=== PATIENT | male | born 1980 | race Caucasian/White ===

== ENCOUNTER → 2019-05-20 | Outpatient (CLI) | payer OTHER ==
[~2019-05-20] MED LIST: ALBU90OI INH; AMOX500 PO; Augmentin 875-1 EACH PO; ESCI10 PO; HYDACE5 PO; META800 PO; METCAR500 PO; NAPR500 PO; PANT20 PO; PRED20 PO; SLEEPING PILL; Zithromax250 MG PO
== END | disposition home or self-care (01) ==
LOC: PLD 07:39 → LAB SHORT 07:39
DX: D22.5 Melanocytic nevi of trunk (principal)
CPT/HCPCS: 88305

== ENCOUNTER → 2020-12-14 | Outpatient (CLI) | payer OTHER | LOC: LAB 12:01 → LAB SHORT 12:01 | DX: D48.5 Neoplasm of uncertain behavior of skin (principal); D22.5 Melanocytic nevi of trunk | CPT/HCPCS: 88305; 88342 ==

== ENCOUNTER 2021-07-10 07:47 | Emergency (ER) | payer OTHER ==
[~2021-07-10] VITALS: Ht 162.6 cm; Wt 131.5 kg
[2021-07-10] MEDS ORDERED: AMOCLA875 PO (08:24)
== END 2021-07-10 08:58 | disposition home or self-care (01) ==
LOC: ER 07:47
DX: S61.451A Open bite of right hand, initial encounter (principal); Z23 Encounter for immunization; E78.5 Hyperlipidemia, unspecified; G47.30 Sleep apnea, unspecified; Z88.8 Allergy status to other drugs, medicaments and biological substances; Z79.899 Other long term (current) drug therapy; F17.220 Nicotine dependence, chewing tobacco, uncomplicated; W55.01XA Bitten by cat, initial encounter
CPT/HCPCS: 90471; 90714; 99283-25

== ENCOUNTER 2021-07-28 09:56 | Emergency (ER) | payer OTHER ==
[~2021-07-28] VITALS: Ht 165.1 cm; Wt 129.5 kg
[~2021-07-28 09:56] MED LIST changes: +AMOCLA875 PO
[2021-07-28] MEDS ORDERED: Cyclobenzaprine5 MG (10:28)
[2021-07-28 10:44] LABS: Source, Urine Voided
[2021-07-28 10:56] LABS: BASOPHILS ABSOLUTE AUTO 0.04 K/mm3 (0.00-0.23); BASOPHILS PERCENT AUTO 0 % (0-2); EOSINOPHILS ABSOLUTE AUTO 0.02 K/mm3 (0.00-0.68); EOSINOPHILS PERCENT AUTO 0 % (0-6); Hematocrit 45.4 % (37.0-53.0); Hemoglobin 15.5 g/dL (13.5-17.5); IMMATURE GRAN ABSOLUTE AUTO 0.09 K/mm3 (0.00-0.10); IMMATURE GRAN PERCENT AUTO 1 % (0-1); LYMPHOCYTES ABSOLUTE AUTO 1.07 K/mm3 (0.84-5.20); LYMPHOCYTES PERCENT AUTO 6 % (21-46); MONOCYTES ABSOLUTE AUTO 1.24 K/mm3 (0.16-1.47); MONOCYTES PERCENT AUTO 7 % (4-13); Mean Corpuscular HGB 30.3 pg (26.0-34.0); Mean Corpuscular HGB Conc 34.1 g/dL (31.5-36.5); Mean Corpuscular Volume 89 fL (80-100); Mean Platelet Volume 8.7 fL (9.1-12.4); NEUTROPHILS PERCENT AUTO 86 % (41-73); Platelet Count 238 K/mm3 (150-400); RDW Coefficient Variation 12.7 % (11.7-14.2); RDW Standard Deviation 41.5 fL (35.1-46.3); Red Blood Cell Count 5.12 M/mm3 (4.30-5.90); White Blood Cell Count 17.26 K/mm3 (4.00-11.30)
[2021-07-28 11:01] LABS: Appearance, Urine Clear (Clear); Bilirubin, Urine Neg (Neg); Blood, Urine 2+ (Neg); Color, Urine Yellow (P-Yellow); Glucose Qualitative, Urine Neg (Neg); Ketones, Urine 1+ (Neg); Leukocyte Esterase, Urine Neg (Neg); Nitrite, Urine Neg (Neg); Protein, Urine 2+ (Neg); Specific Gravity, Urine 1.015 (1.003-1.022); Urobilinogen, Urine 2+ (Normal)
[2021-07-28 11:07] LABS: Anion Gap 5 mmol/L (6-16); Blood Urea Nitrogen 11 mg/dL (8-24); Bun/Creatinine Ratio 14.3 (12.0-20.0); CO2, Blood 24 mmol/L (21-32); Calcium, Blood 8.8 mg/dL (8.5-10.1); Chloride, Blood 110 mmol/L (98-108); Creatinine, Blood 0.77 mg/dL (0.60-1.20); Glomerular Filtration Rate >60 (60-); Glucose, Blood 99 mg/dL (70-99); Potassium, Blood 3.5 mmol/L (3.5-5.5); Sodium, Blood 139 mmol/L (136-145)
[2021-07-28 11:26] LABS: Bacteria Rare /hpf; Squamous Epithelial Cells Rare /hpf (Few); White Blood Cells, Urine 0-2 /hpf (0-5)
[2021-07-28] MEDS ORDERED: IBUP800 PO (16:16)
[2021-07-28] MEDS ORDERED: CEPH500 PO (16:16)
== END 2021-07-28 16:35 | disposition home or self-care (01) ==
LOC: ER 09:56
PROVIDERS: Emergency Medicine
DX: N49.2 Inflammatory disorders of scrotum (principal); F17.220 Nicotine dependence, chewing tobacco, uncomplicated; Z79.899 Other long term (current) drug therapy; Z88.8 Allergy status to other drugs, medicaments and biological substances
CPT/HCPCS: 36415; 55100; 72193; 76870; 80048; 81001; 85025; 96374-59; 99284-25; J0696; Q9967

== ENCOUNTER 2023-07-29 21:08 | Emergency (ER) | payer OTHER ==
[~2023-07-29] VITALS: Ht 165.1 cm; Wt 117.9 kg
[~2023-07-29 21:08] MED LIST changes: +CEPH500 PO; +Cyclobenzaprine5 MG; +IBUP800 PO
[2023-07-29 21:26] VITALS: BP 133/82
[2023-07-29] MEDS ORDERED: Tetanus and Diphtheria Toxoid 0.5 ML INJ IM ONE (22:05)
[2023-07-29] MEDS ORDERED: Amoxicillin/Clavulanate K 875 MG Tab PO ONE (22:05)
[2023-07-29] MEDS ORDERED: AMOCLA875 PO (22:05)
== END 2023-07-29 22:12 | disposition home or self-care (01) ==
LOC: ER 21:08
DX: S61.452A Open bite of left hand, initial encounter (principal); F17.220 Nicotine dependence, chewing tobacco, uncomplicated; F17.290 Nicotine dependence, other tobacco product, uncomplicated; E78.5 Hyperlipidemia, unspecified; G47.30 Sleep apnea, unspecified; Z79.899 Other long term (current) drug therapy; Z88.8 Allergy status to other drugs, medicaments and biological substances; W54.0XXA Bitten by dog, initial encounter; Y93.89 Activity, other specified
CPT/HCPCS: 90471; 90714; 99283-25; A9270

== ENCOUNTER → 2024-06-07 | Outpatient (CLI) | payer OTHER ==
[2024-06-12 11:48] LABS: 3-OH-COTININE, URN, QUANT 211 ng/mL; ANABASINE, URN, QUANT <5 ng/mL; COTININE, URN, QUANT 92 ng/mL; NICOTINE, URN, QUANT <15 ng/mL
== END | disposition home or self-care (01) ==
LOC: LAB SHORT 10:49 → LAB 10:49
PROVIDERS: Orthopaedic Surgery
DX: Z87.891 Personal history of nicotine dependence (principal)
CPT/HCPCS: G0480

== ENCOUNTER 2024-08-07 09:06 | Day surgery (SDC) | payer BC, OTHER ==
[~2024-08-07] VITALS: Ht 162.6 cm; Wt 135.5 kg
[2024-08-07] MEDS ORDERED: Midazolam HCl 1MG / ML 2ML Vial ONE (09:13)
[2024-08-07] MEDS ORDERED: Rocuronium Bromide 10 MG/ML 5ML Injection IV ONE ×2 (09:13→11:08)
[2024-08-07] MEDS ORDERED: propofoL 20 ML IV ONE ×2 (09:13→11:29)
[2024-08-07] MEDS ORDERED: CYCL10 PO (09:36)
[2024-08-07] MEDS ORDERED: CELEXA40 M9 PO (09:37)
[2024-08-07] MEDS ORDERED: OMEP20ER (09:38)
[2024-08-07] MEDS ORDERED: Lactated Ringer's 1,000 ML IV ONE ×3 (09:45→12:44)
[2024-08-07] MEDS ORDERED: CeFAZolin Sodium 3,000 MG VIAL ONE (09:53)
[2024-08-07] MEDS ORDERED: Bupivacaine 0.5% W/EPI 1:200000 SDV 30 ML Vial ONE (10:01)
[2024-08-07] MEDS ORDERED: EPINEPhrine HCl 1 MG/ML 1ML Amp ONE (10:01)
--- NOTE | 2024-08-07 10:02 | NUR ---
08/07/24 1002 Gloria Gaitan RN AND DR DEL ROSARIO NOTIFIED OF BMI 51.3 DR SOUZA EXAMINED L KNEE AND AWARE OF HEALING ABRAISON TO L KNEE PER DR SOUZA NO NEED FOR COMPRESSION STOCKINGS
[2024-08-07] MEDS ORDERED: FentaNYL Citrate 50 MCG/ML 2 ML Injection ONE ×3 (10:29→12:21)
[2024-08-07] MEDS ORDERED: Ketorolac Tromethamine 30mg Vial ONE (10:29)
[2024-08-07] MEDS ORDERED: Ondansetron HCl 2 MG / ML 2ML Vial ONE ×2 (10:29→13:45)
[2024-08-07] MEDS ORDERED: Dexamethasone Sod Phos 10 MG/ML 1ML VIAL ONE (10:29)
[2024-08-07] MEDS ORDERED: Sugammadex Sodium 200 MG/2ML SDV (100 MG/ML) ONE (11:25)
--- NOTE | 2024-08-07 12:05 | NUR ---
08/07/24 1205 SABRINA RDZ PT DENIES NAUSA, PAIN 09/17 PLAN TO GIVE PO [id number]
[2024-08-07] MEDS ORDERED: OxyCODONE HCL 10 MG TABCR ONE (12:20)
--- NOTE | 2024-08-07 12:24 | NUR ---
08/07/[address] IN AT BEDSIDE SPEAKING WITH PT.
[2024-08-07 12:48] VITALS: BP 129/86
== END 2024-08-07 14:45 | disposition home or self-care (01) ==
LOC: ORSCSDS 09:06
PROVIDERS: Orthopaedic Surgery
PROC: 0SBD4ZZ Excision of Left Knee Joint, Percutaneous Endoscopic Approach (ICD-10-PCS; principal; 2024-08-07 10:30)
DX: S83.242A Other tear of medial meniscus, current injury, left knee, initial encounter (principal); Z87.891 Personal history of nicotine dependence; E66.01 Morbid (severe) obesity due to excess calories; Z68.43 Body mass index [BMI] 50.0-59.9, adult; G47.33 Obstructive sleep apnea (adult) (pediatric); I10 Essential (primary) hypertension; Z79.899 Other long term (current) drug therapy
CPT/HCPCS: A9270; C1713; J0171; J0690; J1100; J1885; J2250; J2405; J2704; J3010; J7120